=== PATIENT | male | born 1985 | race Caucasian/White ===

== ENCOUNTER 2022-04-03 23:26 | Inpatient (IN) | payer MEDICAID, OTHER ==
--- NOTE | 2022-04-04 01:00 | ED ---
Psych HPI - General Chief Complaint: Psychiatric Symptoms Stated Complaint: Mental health Time Seen by Provider: 04/04/22 00:15 Source: patient Mode of arrival: ambulatory - History of Present Illness Initial Comments: 37-year-old male with past history of bipolar schizophrenia presents to the emergency department after he is petitioned by police. Patient reports that his boyfriend 2 years ago. There was some explosive photos that were just released to family and friends approximate one month ago. This is making him depressed. Apparently he sent a video to friends with an entire bottle of pills in his mouth. Patient reports to me that he had a lapse in his judgment. States that he did not swallow the pills. Reports that they were Celexa tablets. He denies suicidal ideations or homicidal ideations to me. His thoughts are extremely disorganized and nonsensical. The HPI is limited because of the patient's mental status - Related Data Home Medications Medication Instructions Recorded Confirmed PARoxetine [Paxil] 20 mg PO BID PRN 04/04/22 04/04/22 Allergies Allergy/AdvReac Type Severity Reaction Status Date / Time No Known Allergies Allergy Verified 04/04/22 07:14 Review of Systems ROS Statement: Those systems with pertinent positive or pertinent negative responses have been documented in the HPI. ROS Other: All systems not noted in ROS Statement are negative. Past Medical History Past Medical History: No Reported History History of Any Multi-Drug Resistant Organisms: None Reported Past Surgical History: No Surgical Hx Reported Past Psychological History: No Psychological Hx Reported Smoking Status: Never smoker Past Alcohol Use History: None Reported Past Drug Use History: None Reported - Past Family History Mother Family Medical History: COPD General Exam Limitations: altered mental status General appearance: alert, in no apparent distress Head exam: Present: atraumatic, normocephalic, normal inspection Eye exam: Present: normal appearance, PERRL, EOMI. Absent: scleral icterus, conjunctival injection, periorbital swelling ENT exam: Present: normal exam, mucous membranes moist Neck exam: Present: normal inspection. Absent: tenderness, meningismus, lymphadenopathy Respiratory exam: Present: normal lung sounds bilaterally. Absent: respiratory distress, wheezes, rales, rhonchi, stridor Cardiovascular Exam: Present: regular rate, normal rhythm, normal heart sounds. Absent: systolic murmur, diastolic murmur, rubs, gallop, clicks GI/Abdominal exam: Present: soft, normal bowel sounds. Absent: distended, tenderness, guarding, rebound, rigid Extremities exam: Present: normal inspection, full ROM, normal capillary refill. Absent: tenderness, pedal edema, joint swelling, calf tenderness Back exam: Present: normal inspection Neurological exam: Present: alert, oriented X3, CN II-XII intact Psychiatric exam: Present: manic Skin exam: Present: warm, dry, intact, normal color. Absent: rash Course Vital Signs 04/03/22 04/04/22 23:57 06:41 Temperature 97.1 F L Pulse Rate 70 83 Respiratory 20 18 Rate Blood Pressure 133/83 136/90 O2 Sat by Pulse 100 99 Oximetry Medical Decision Making - Medical Decision Making Upon arrival patient is placed into room 7. Thorough history and physical exam is performed. Patient is to patient. I did conduct laboratory studies due to possible overdose. UDS is positive for marijuana. Salicylates and acetaminoph en are negative. Patient is ready for EPS evaluation at this time - Lab Data Result diagrams: 04/04/22 01:14 04/04/22 01:14 Lab Results 04/04/22 04/04/22 04/04/22 Range/Units 01:14 01:14 01:14 WBC 9.7 (3.8-10.6) k/uL RBC 4.91 (4.30-5.90) m/uL Hgb 15.4 (13.0-17.5) gm/dL Hct 46.7 (39.0-53.0) % MCV 95.1 (80.0-100.0) fL MCH 31.4 (25.0-35.0) pg MCHC 33.0 (31.0-37.0) g/dL RDW 12.9 (11.5-15.5) % Plt Count 201 (150-450) k/uL MPV 10.4 Neutrophils % 66 % Lymphocytes % 26 % Monocytes % 5 % Eosinophils % 2 % Basophils % 1 % Neutrophils # 6.4 (1.3-7.7) k/uL Lymphocytes # 2.5 (1.0-4.8) k/uL Monocytes # 0.5 (0-1.0) k/uL Eosinophils # 0.2 (0-0.7) k/uL Basophils # 0.1 (0-0.2) k/uL Sodium 138 (137-145) mmol/L Potassium 3.8 (3.5-5.1) mmol/L Chloride 106 (98-107) mmol/L Carbon Dioxide 20 L (22-30) mmol/L Anion Gap 12 mmol/L BUN 12 (9-20) mg/dL Creatinine 0.70 (0.66-1.25) mg/dL Est GFR (CKD-EPI)AfAm >90 (>60 ml/min/1.73 sqM) Est GFR (CKD-EPI)NonAf >90 (>60 ml/min/1.73 sqM) Glucose 89 (74-99) mg/dL Calcium 9.7 (8.4-10.2) mg/dL Total Bilirubin 0.5 (0.2-1.3) mg/dL AST 24 (17-59) U/L ALT 15 (4-49) U/L Alkaline Phosphatase 71 (38-126) U/L Total Protein 7.3 (6.3-8.2) g/dL Albumin 4.7 (3.5-5.0) g/dL Urine Color Yellow Urine Appearance Clear (Clear) Urine pH 6.0 (5.0-8.0) Ur Specific [place] 1.017 (1.001-1.035) Urine Protein Trace H (Negative) Urine Glucose (UA) Negative (Negative) Urine Ketones 1+ H (Negative) Urine Blood Negative (Negative) Urine Nitrite Negative (Negative) Urine Bilirubin Negative (Negative) Urine Urobilinogen <2.0 (<2.0) mg/dL Ur Leukocyte Esterase Negative (Negative) Salicylates <1.0 mg/dL Urine Opiates Screen Not Detected (NotDetected) Ur Oxycodone Screen Not Detected (NotDetected) Urine Methadone Screen Not Detected (NotDetected) Ur Propoxyphene Screen Not Detected (NotDetected) Acetaminophen <10.0 ug/mL Ur Barbiturates Screen Not Detected (NotDetected) U Tricyclic Antidepress Not Detected (NotDetected) Ur Phencyclidine Scrn Not Detected (NotDetected) Ur Amphetamines Screen Not Detected (NotDetected) U Methamphetamines Scrn Not Detected (NotDetected) U Benzodiazepines Scrn Not Detected (NotDetected) Urine Cocaine Screen Not Detected (NotDetected) U Marijuana (THC) Screen Detected H (NotDetected) Coronavirus (PCR) (Not Detectd) 04/04/22 Range/Units 05:03 WBC (3.8-10.6) k/uL RBC (4.30-5.90) m/uL Hgb (13.0-17.5) gm/dL Hct (39.0-53.0) % MCV (80.0-100.0) fL MCH (25.0-35.0) pg MCHC (31.0-37.0) g/dL RDW (11.5-15.5) % Plt Count (150-450) k/uL MPV Neutrophils % % Lymphocytes % % Monocytes % % Eosinophils % % Basophils % % Neutrophils # (1.3-7.7) k/uL Lymphocytes # (1.0-4.8) k/uL Monocytes # (0-1.0) k/uL Eosinophils # (0-0.7) k/uL Basophils # (0-0.2) k/uL Sodium (137-145) mmol/L Potassium (3.5-5.1) mmol/L Chloride (98-107) mmol/L Carbon Dioxide (22-30) mmol/L Anion Gap mmol/L BUN (9-20) mg/dL Creatinine (0.66-1.25) mg/dL Est GFR (CKD-EPI)AfAm (>60 ml/min/1.73 sqM) Est GFR (CKD-EPI)NonAf (>60 ml/min/1.73 sqM) Glucose (74-99) mg/dL Calcium (8.4-10.2) mg/dL Total Bilirubin (0.2-1.3) mg/dL AST (17-59) U/L ALT (4-49) U/L Alkaline Phosphatase (38-126) U/L Total Protein (6.3-8.2) g/dL Albumin (3.5-5.0) g/dL Urine Color Urine Appearance (Clear) Urine pH (5.0-8.0) Ur Specific [place] (1.001-1.035) Urine Protein (Negative) Urine Glucose (UA) (Negative) Urine Ketones (Negative) Urine Blood (Negative) Urine Nitrite (Negative) Urine Bilirubin (Negative) Urine Urobilinogen (<2.0) mg/dL Ur Leukocyte Esterase (Negative) Salicylates mg/dL Urine Opiates Screen (NotDetected) Ur Oxycodone Screen (NotDetected) Urine Methadone Screen (NotDetected) Ur Propoxyphene Screen (NotDetected) Acetaminophen ug/mL Ur Barbiturates Screen (NotDetected) U Tricyclic Antidepress (NotDetected) Ur Phencyclidine Scrn (NotDetected) Ur Amphetamines Screen (NotDetected) U Methamphetamines Scrn (NotDetected) U Benzodiazepines Scrn (NotDetected) Urine Cocaine Screen (NotDetected) U Marijuana (THC) Screen (NotDetected) Coronavirus (PCR) Not Detected (Not Detectd) - EKG Data EKG Comments: EKG hematocrit sinus rhythm with a rate of 81. CT interval 160. QRS 86. QTC of 380. ST segment elevation 2, 3, aVF, V2-V6. No reciprocal changes. Signs of early repolarization Disposition Clinical Impression: Acute psychosis Disposition: TRANSFER TO PSYCH HOSP/UNIT Condition: Stable Is patient prescribed a controlled substance at d/c from ED?: No Decision to Admit Reason: Admit from EC
[2022-04-04 01:20] LABS: Basophils # (A) 0.1 k/uL (0-0.2); Basophils % (A) 1 %; Eosinophils # (A) 0.2 k/uL (0-0.7); Eosinophils % (A) 2 %; HCT 46.7 % (39.0-53.0); HGB 15.4 gm/dL (13.0-17.5); Lymphocytes # (A) 2.5 k/uL (1.0-4.8); Lymphocytes % (A) 26 %; MCH 31.4 pg (25.0-35.0); MCV 95.1 fL (80.0-100.0); Mean Platelet Volume 10.4; Monocytes # (A) 0.5 k/uL (0-1.0); Monocytes % (A) 5 %; Neutrophils # (A) 6.4 k/uL (1.3-7.7); Neutrophils % (A) 66 %; Platelet Count 201 k/uL (150-450); RBC 4.91 m/uL (4.30-5.90); RDW 12.9 % (11.5-15.5); WBC 9.7 k/uL (3.8-10.6)
[2022-04-04 01:24] LABS: Appearance,Urine Clear (Clear); Bilirubin,Urine Negative (Negative); Blood,Urine Negative (Negative); Color,Urine Yellow; Glucose,Urine (UA) Negative (Negative); Ketones,Urine 1+ (Negative); Leukocyte Esterase,Urine Negative (Negative); Nitrite,Urine Negative (Negative); Protein,Urine Trace (Negative); Specific Gravity,Urine 1.017 (1.001-1.035); Urobilinogen,Urine <2.0 mg/dL (<2.0)
[2022-04-04 01:35] LABS: ALT 15 U/L (4-49); AST 24 U/L (17-59); Acetaminophen <10.0 ug/mL; African American GFR (CKD) >90 (>60 ml/min/1.73 sqM); Albumin 4.7 g/dL (3.5-5.0); Alkaline Phosphatase 71 U/L (38-126); Anion Gap 12 mmol/L; Blood Urea Nitrogen 12 mg/dL (9-20); Calcium 9.7 mg/dL (8.4-10.2); Carbon Dioxide 20 mmol/L (22-30); Chloride 106 mmol/L (98-107); Glucose 89 mg/dL (74-99); Non-African American GFR(CKD) >90 (>60 ml/min/1.73 sqM); Potassium 3.8 mmol/L (3.5-5.1); Salicylate <1.0 mg/dL; Sodium 138 mmol/L (137-145); Total Bilirubin 0.5 mg/dL (0.2-1.3); Total Protein 7.3 g/dL (6.3-8.2)
[2022-04-04 01:47] LABS: Amphetamine Screen,Urine Not Detected (NotDetected); Barbiturate Screen,Urine Not Detected (NotDetected); Benzodiazepines Screen,Urine Not Detected (NotDetected); Cocaine Screen,Urine Not Detected (NotDetected); Methadone Screen, Urine Not Detected (NotDetected); Opiate Screen,Urine Not Detected (NotDetected); Oxycodone Screen, Urine Not Detected (NotDetected); Phencyclidine Screen,Urine Not Detected (NotDetected); Tricyclic Antidepressant,Urine Not Detected (NotDetected); Urn Cannabinoid Scrn Detected (NotDetected)
[2022-04-04] MEDS ORDERED: MAGNESIUM HYDROXIDE 2,400 MG/10 ML CUP PO PRN (06:39)
[2022-04-04] MEDS ORDERED: ACETAMINOPHEN TAB 325 MG TAB PO PRN (06:39)
[2022-04-04] MEDS ORDERED: MAG HYDROX/AL HYDROX/SIMETH 30 ML CUP PO PRN (06:39)
[2022-04-04] MEDS ORDERED: HALOPERIDOL LACTATE 5 MG/ML 1 ML VIAL IM PRN (06:39)
[2022-04-04] MEDS ORDERED: LORazepam 2 MG/ML INJ IM PRN (07:12)
[2022-04-04] MEDS ORDERED: haloperidoL 5 MG TAB PO PRN (07:13)
[2022-04-04] MEDS: NICOTINE 14MG/24HR PATCH TRANSDERM SCH (09:24)
[2022-04-04] MEDS: LORazepam 1 MG TAB PO PRN ×2 (09:50→20:36)
[2022-04-04] MEDS ORDERED: ARIPiprazole 10 MG TAB PO STA (12:00)
--- NOTE | 2022-04-04 14:50 | P.HP ---
Psychiatric H&P - . H&P Date: 04/04/22 History & Physical: Allergies Allergy/AdvReac Type Severity Reaction Status Date / Time No Known Allergies Allergy Verified 04/04/22 07:14 Vital Signs Temp 97.7 F 04/04/22 08:40 Pulse 107 H 04/04/22 08:40 Resp 16 04/04/22 08:40 BP 131/77 04/04/22 08:40 Pulse Ox 97 04/04/22 08:40 FiO2 Intake & Output 04/03/22 04/04/22 04/04/22 18:59 06:59 18:59 Weight 81.647 kg Laboratory Last Values WBC 9.7 k/uL (3.8-10.6) 04/04/22 01:14 RBC 4.91 m/uL (4.30-5.90) 04/04/22 01:14 Hgb 15.4 gm/dL (13.0-17.5) 04/04/22 01:14 Hct 46.7 % (39.0-53.0) 04/04/22 01:14 MCV 95.1 fL (80.0-100.0) 04/04/22 01:14 MCH 31.4 pg (25.0-35.0) 04/04/22 01:14 MCHC 33.0 g/dL (31.0-37.0) 04/04/22 01:14 RDW 12.9 % (11.5-15.5) 04/04/22 01:14 Plt Count 201 k/uL (150-450) 04/04/22 01:14 MPV 10.4 04/04/22 01:14 Neutrophils % 66 % 04/04/22 01:14 Lymphocytes % 26 % 04/04/22 01:14 Monocytes % 5 % 04/04/22 01:14 Eosinophils % 2 % 04/04/22 01:14 Basophils % 1 % 04/04/22 01:14 Neutrophils # 6.4 k/uL (1.3-7.7) 04/04/22 01:14 Lymphocytes # 2.5 k/uL (1.0-4.8) 04/04/22 01:14 Monocytes # 0.5 k/uL (0-1.0) 04/04/22 01:14 Eosinophils # 0.2 k/uL (0-0.7) 04/04/22 01:14 Basophils # 0.1 k/uL (0-0.2) 04/04/22 01:14 Sodium 138 mmol/L (137-145) 04/04/22 01:14 Potassium 3.8 mmol/L (3.5-5.1) 04/04/22 01:14 Chloride 106 mmol/L (98-107) 04/04/22 01:14 Carbon Dioxide 20 mmol/L (22-30) L 04/04/22 01:14 Anion Gap 12 mmol/L 04/04/22 01:14 BUN 12 mg/dL (9-20) 04/04/22 01:14 Creatinine 0.70 mg/dL (0.66-1.25) 04/04/22 01:14 Est GFR (CKD-EPI)AfAm >90 (>60 ml/min/1.73 sqM) 04/04/22 01:14 Est GFR (CKD-EPI)NonAf >90 (>60 ml/min/1.73 sqM) 04/04/22 01:14 Glucose 89 mg/dL (74-99) 04/04/22 01:14 Calcium 9.7 mg/dL (8.4-10.2) 04/04/22 01:14 Total Bilirubin 0.5 mg/dL (0.2-1.3) 04/04/22 01:14 AST 24 U/L (17-59) 04/04/22 01:14 ALT 15 U/L (4-49) 04/04/22 01:14 Alkaline Phosphatase 71 U/L (38-126) 04/04/22 01:14 Total Protein 7.3 g/dL (6.3-8.2) 04/04/22 01:14 Albumin 4.7 g/dL (3.5-5.0) 04/04/22 01:14 Urine Color Yellow 04/04/22 01:14 Urine Appearance Clear (Clear) 04/04/22 01:14 Urine pH 6.0 (5.0-8.0) 04/04/22 01:14 Ur Specific [place] 1.017 (1.001-1.035) 04/04/22 01:14 Urine Protein Trace (Negative) H 04/04/22 01:14 Urine Glucose (UA) Negative (Negative) 04/04/22 01:14 Urine Ketones 1+ (Negative) H 04/04/22 01:14 Urine Blood Negative (Negative) 04/04/22 01:14 Urine Nitrite Negative (Negative) 04/04/22 01:14 Urine Bilirubin Negative (Negative) 04/04/22 01:14 Urine Urobilinogen <2.0 mg/dL (<2.0) 04/04/22 01:14 Ur Leukocyte Esterase Negative (Negative) 04/04/22 01:14 Salicylates <1.0 mg/dL 04/04/22 01:14 Urine Opiates Screen Not Detected (NotDetected) 04/04/22 01:14 Ur Oxycodone Screen Not Detected (NotDetected) 04/04/22 01:14 Urine Methadone Screen Not Detected (NotDetected) 04/04/22 01:14 Ur Propoxyphene Screen Not Detected (NotDetected) 04/04/22 01:14 Acetaminophen <10.0 ug/mL 04/04/22 01:14 Ur Barbiturates Screen Not Detected (NotDetected) 04/04/22 01:14 U Tricyclic Antidepress Not Detected (NotDetected) 04/04/22 01:14 Ur Phencyclidine Scrn Not Detected (NotDetected) 04/04/22 01:14 Ur Amphetamines Screen Not Detected (NotDetected) 04/04/22 01:14 U Methamphetamines Scrn Not Detected (NotDetected) 04/04/22 01:14 U Benzodiazepines Scrn Not Detected (NotDetected) 04/04/22 01:14 Urine Cocaine Screen Not Detected (NotDetected) 04/04/22 01:14 U Marijuana (THC) Screen Detected (NotDetected) H 04/04/22 01:14 Coronavirus (PCR) Not Detected (Not Detectd) 04/04/22 05:03 04/04/22 14:50 IDENTIFYING DATA: Patient is a 37-year-old, , self-employed, male with a significant history of psychosis presents to the hospital under petition and certification for acute psychotic behavior and depression. HPI: Patient presented to the hospital on 04/04/2022, brought in by police after being petition by the [employer] police. "Patient advised he does not like taking his medication for anxiety because he can no longer do the voice in his head. I observed text messages from the patient's aunt to family members and friends saying that he does not want to be alive. I observed a video the patient sent to her friend swallowing approximately 25+ white pills." The patient is noted by the EPS as to present as tangential, with rambling thought process, and talking about the relationship he had with a partner 2 years ago. He was admitted for further evaluation and management. Upon admission onto the psychiatric unit, the patient reports that recently, he has been expressing numerous stressors. He states that he had an ex parte her who 2 years ago for "being rios." He reports that recently, photos of their relationship have been released on Facebook causing many of his friends and family to charge hand him. Furthermore, he states that his 17-year-old daughter was recently held up at [employer]. 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 In regards to psychiatric symptoms, the patient is not reporting any suicidal or homicidal ideation, intention, and/or plan. He reports that he had suicidal thoughts shortly after taking Paxil because he felt that the Paxil "took away my soul." He states that he felt like he was disconnected from God and felt very depressed and wanting to kill himself. During the interview, the patient is quite tangential and presented with a flight of ideas that are difficult to follow. He is not reporting any auditory or visual hallucinations however does report some grandiose delusions. He is in agreement to start medications in order to address his elevated anxiety and racing thoughts. PAST PSYCHIATRIC HISTORY: Patient states that he has been increasingly diagnosed with anxiety. Patient is able to recall being previous to prescribed Abilify and Paxil. The patient reports a previous psychiatric admission at [facility]. Patient denies any psychiatric outpatient follow-up. He admits to the previous overdose attempt prior to this admission. PMH: Past Medical History: No Reported History History of Any Multi-Drug Resistant Organisms: None Reported Past Surgical History: No Surgical Hx Reported Past Psychological History: No Psychological Hx Reported Smoking Status: Never smoker Past Alcohol Use History: None Reported Past Drug Use History: None Reported ALLERGIES: NO KNOWN DRUG ALLERGIES CHEMICAL DEPENDENCY HISTORY: Patient admits to marijuana use on occasion. He denies any alcohol or illicit drug use. He denies any tobacco use. PSYCHIATRIC/SUBSTANCE USE HISTORY: No reported family psychiatric history. SOCIAL HISTORY: Patient currently lives with his ex-, their 2 children, and 2 other adult males in the home. MENTAL STATUS EXAM: General Appearance: Patient appears to be stated age is alert, directable, and attempts to cooperate. Patient appears to have fair hygiene and grooming. Tall and thin. Behavior: Patient is seated without any agitated behavior. Eye contact is i ntense. Speech: Patient's speech is tangential, hyperverbal, and slightly pressured. Mood/Affect: Patient reports their mood is "nervous," affect is incongruent and very expensive. Suicidality/Homicidality: Patient is currently denying any suicidal or homicidal ideation. Perceptions: Patient denies any visual hallucinations and denies any auditory hallucinations Though content/process: The patient endorses some grandiose delusional thoughts as well as possible delusions of persecution. Memory and concentration: AOX3, grossly intact for the purposes of this session. Can spell "WORLD" backwards Judgment and insight: Poor STRENGTHS/WEAKNESSES: Strength is that the patient is resilient and has a supportive family. Weakness is that patient has poor insight INTELLECT: average IMPRESSIONS: Acute psychosis Rule out delusional disorder Cannabis use disorder PLAN: -Patient is admitted under involuntary however converted to voluntary status to MHU for stabilization of psychiatric symptoms and safety. Patient signed adult voluntary form and medication consent and is placed in patient's chart. -Medications : Will start patient on Abilify 10 mg by mouth daily for mood stabilization/psychosis -Ativan and Haldol PRN for agitation/aggression -Patient was counselled on substance abuse and desired to cut back on use -Patient was informed of the risks, benefits and side effects of the medication and patient verbally consented to taking the medications. Patient signed med consent form and was placed in chart. -Internal Medicine consult to perform medical evaluation and physical. -SW on board for discharge planning. Encourage patient to participate in groups to work on coping skills. 04/04/22 14:50
--- NOTE | 2022-04-05 04:30 | P.CONS ---
History of Present Illness - Reason for Consult Consult date: 04/04/22 - History of Present Illness The patient is a 37-year-old male with a PMH of schizophrenia and bipolar disorder who was brought into the emergency room under police custody due to aggressive behavior. The patient had reportedly been making suicidal threats to his family members and friends. He was admitted to mental health unit where he was seen and evaluated. The patient reports that his boyfriend had 3 years ago and that there is a conspiracy surrounding his . He did not wish to elaborate further. He does report using marijuana and smoking half pack of cigarettes daily but denied alcohol use. Denies physical complaints at the time of interview. Denied chest pain, shortness of breath, chills, cough. Review of systems: Pertinent positives and negatives as discussed in HPI, a complete review of systems was performed and all other systems are negative. Physical examination: General: non toxic, no distress, appears at stated age, normal weight Derm: no unusual rashes/lesions, no unusual ecchymoses, warm, dry Head: atraumatic, normocephalic, symmetric Eyes: EOMI, no lid lag, anicteric sclera ENT: Nose and ears atraumatic, no thrush, no pharyngeal erythema Neck: trachea midline, supple Mouth: no lip lesion, mucus membranes moist Cardiovascular: S1S2 reg, no murmur, no edema Lungs: CTA bilateral, no rhonchi, no rales , no accessory muscle use Abdominal: soft, nontender to palpation, no guarding Ext: no gross muscle atrophy, no contractures, Neuro: No gross focal neuro deficits noted Psych: Alert, oriented, appropriate affect Assessment/plan Marijuana abuse and tobacco abuse -Advised on importance of cessation Depression with suicidal ideation -As per psychiatry Thank you for allowing us to participate in the care of this patient. We will follow peripherally. Do not hesitate to contact us with questions. Someone can be reached from the [facility] hospitalist group at all hours of the day at [phone]. Past Medical History Past Medical History: No Reported History History of Any Multi-Drug Resistant Organisms: None Reported Past Surgical History: No Surgical Hx Reported Smoking Status: Current every day smoker - Past Family History Mother Family Medical History: COPD Medications and Allergies Home Medications Medication Instructions Recorded Confirmed Type PARoxetine [Paxil] 20 mg PO BID PRN 04/04/22 04/04/22 History Allergies Allergy/AdvReac Type Severity Reaction Status Date / Time No Known Allergies Allergy Verified 04/04/22 07:14 Physical Exam Vitals: Vital Signs Temp Pulse Pulse Resp BP BP Pulse Ox 04/04/22 08:40 97.7 F 107 H 16 131/77 97 04/04/22 06:41 83 18 136/90 99 04/03/22 23:57 97.1 F L 70 20 133/83 100 Intake and Output 04/04/22 04/04/22 04/04/22 06:59 14:59 22:59 Other: Weight 81.647 kg Results CBC & Chem 7: 04/04/22 01:14 04/04/22 01:14 Labs: Abnormal Lab Results - Last 24 Hours (Table) 04/04/22 04/04/22 Range/Units 01:14 01:14 Carbon Dioxide 20 L (22-30) mmol/L Urine Protein Trace H (Negative) Urine Ketones 1+ H (Negative) U Marijuana (THC) Screen Detected H (NotDetected)
[2022-04-05] MEDS: NICOTINE 14MG/24HR PATCH TRANSDERM SCH (08:10)
[2022-04-05] MEDS ORDERED: ARIPiprazole 15 MG TAB PO SCH (09:00)
[2022-04-05 09:25] LABS: Chol/HDL Ratio 3.75 Ratio; LDL Cholesterol,Calculated 107.3 mg/dL (0.0-131.0)
[2022-04-05 12:11] LABS: Albumin 4.8 g/dL (3.8-4.9); Bilirubin, Conjugated <0.20 mg/dL (0.20-0.40); Total Protein 7.2 g/dL (6.2-8.2)
[2022-04-05 12:16] LABS: ALT 15 U/L (10-49); AST 23 U/L (14-35); Alkaline Phosphatase 71 U/L (41-126)
[2022-04-05] MEDS: LORazepam 1 MG TAB PO PRN (20:53)
[2022-04-06 06:52] VITALS: BP 122/60; PULSE 66; RESP 17; TEMP 98.6
[2022-04-06] MEDS: NICOTINE 14MG/24HR PATCH TRANSDERM SCH (08:01)
[2022-04-06] MEDS ORDERED: IBUPROFEN 600 MG TAB PO PRN (09:34)
--- NOTE | 2022-04-06 12:42 | P.PN ---
Progress Note - Text Progress Note Date: 04/05/22 Interval History: Patient was seen wandering the hallways and was directable and agreeable to speak with policy writer in the office. Currently, the patient is reporting that he is feeling significantly better and that his head is more clear. He reports that the Abilify has been helping him with this. He is currently denying any suicidal or homicidal ideation, intention, and/or plan. He is not reporting any auditory or visual hallucinations. He denies any paranoia or other delusions. He reports that he is eating and sleeping better. He is agreeable to further titration of his Abilify. Mental Status Exam: General Appearance: Patient appears to be stated age is alert, directable, and cooperative. Tall and thin build. Tattoo on his left knuckles spelling out his last name. Behavior: Patient is calmly seated without any agitated behavior. Speech: Patient's speech is fluent and nonpressured. Mood/Affect: Mood is improving mildly, affect is congruent and constricted. Suicidality/Homicidality: Patient denies having any suicidal or homicidal ideation intent or plan. Perceptions: Patient denies any visual hallucinations and denies any auditory hallucinations Though content/process: There is no evidence of any delusional thought content and thought process is linear and goal-directed. Memory and concentration: AOX3, grossly intact for the purposes of this session Judgment and insight: Improving mildly Assessment Acute psychosis Rule out delusional disorder Cannabis use disorder Plan: -Patient continues to meet criteria for inpatient psychiatric admission for symptom stabilization and safety. Patient has signed adult voluntary form and medication consent and was placed in patient's chart. -Medications: Abilify 15 mg by mouth daily for mood stabilization/psychosis -When necessary Ativan and Haldol for agitation/aggression. -NRT - nicotine patch -SW on board for discharge planning. Encouraged the patient to participate in milieu.
--- NOTE | 2022-04-06 12:47 | P.DS ---
Providers Date of admission: 04/04/22 06:25 Expected date of discharge: 04/06/22 Attending physician: Efra Baker MD Consults: 04/04/22 06:39 Consult Physician Routine Consulting Provider: Chepe Sutbbs Consult Reason/Comments: For H & P for Medical Follow Up Do you want consulting provider notified?: Yes Primary care physician: MERON ALLEN MD - Discharge Diagnosis(es) (1) Acute psychosis Status: Acute Priority: High (2) Cannabis abuse Status: Chronic Priority: Medium (3) Tobacco use disorder Status: Chronic Priority: Medium Hospital Course: Admission HPI: Patient is a 37-year-old, , self-employed, male with a significant history of psychosis presents to the hospital under petition and certification for acute psychotic behavior and depression. Patient presented to the hospital on 04/04/2022, brought in by police after being petition by the [employer] police. "Patient advised he does not like taking his medication for anxiety because he can no longer do the voice in his head. I observed text messages from the patient's aunt to family members and friends saying that he does not want to be alive. I observed a video the patient sent to her friend swallowing approximately 25+ white pills." The patient is noted by the EPS as to present as tangential, with rambling thought process, and ta lking about the relationship he had with a partner 2 years ago. He was admitted for further evaluation and management. Upon admission onto the psychiatric unit, the patient reports that recently, he has been expressing numerous stressors. He states that he had an ex parte her who 2 years ago for "being rios." He reports that recently, photos of their relationship have been released on Facebook causing many of his friends and family to criminal judge him. Furthermore, he states that his 17-year-old daughter was recently held up at [employer]. He also states that he is experiencing significant financial stressors in regards to his business with [employer]. In regards to psychiatric symptoms, the patient is not reporting any suicidal or homicidal ideation, intention, and/or plan. He reports that he had suicidal thoughts shortly after taking Paxil because he felt that the Paxil "took away my soul." He states that he felt like he was disconnected from God and felt very depressed and wanting to kill himself. During the interview, the patient is quite tangential and presented with a flight of ideas that are difficult to follow. He is not reporting any auditory or visual hallucinations however does report some grandiose delusions. He is in agreement to start medications in order to address his elevated anxiety and racing thoughts. Patient states that he has been increasingly diagnosed with anxiety. Patient is able to recall being previous to prescribed Abilify and Paxil. The patient reports a previous psychiatric admission at [facility]. Patient denies any psychiatric outpatient follow-up. He admits to the previous overdose attempt prior to this admission. Hospital course: Upon admission to the unit patient was initially presenting as expansive, responding to internal stimuli, and exhibiting delusional thoughts. Patient was however directable and agreeable to commence treatment. Patient got along well with other patients on the unit and followed unit protocol. Patient was compliant with the medications and denied any side effects throughout hospital course. Patient was started on Abilify for management of acute psychosis. Patient spoke of his stressors and engaged in therapy both group and individual. Patient was also seen by medical team for history and physical exam. The patient displayed significant improvement in regards to his acute psychotic sym ptoms with a Abilify. He was gradually titrated to a final dose 20 mg daily. He tolerated the medication well. On the day of discharge, the patient is not reporting any suicidal or homicidal ideation, intention, and/or plan. He is not reporting any auditory or visual hallucinations. He denies any paranoia or other delusions. The patient has been adherent with his medications and is not reporting any significant side effects. The patient does have a history of marijuana abuse and was constantly great length and all substances including alcohol and marijuana. We discussed the marijuana may be contributing factor to his acute psychotic symptoms. 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 Prior to discharge, family meeting was arranged by social service manager to answer any questions and ensure safety. Mental status exam: General Appearance: Patient appears to be stated age is alert, pleasant, and co operative. Patient is in no acute distress and has fair hygiene and grooming. Tall and thin build. Behavior: Patient is calmly seated without any agitated behavior. Speech: Patient's speech is fluent and nonpressured. Mood/Affect: Patient reports their mood is "much better", affect is congruent and euthymic. Suicidality/Homicidality: Patient denies having any suicidal or homicidal ideation intent or plan. Perceptions: Patient denies any auditory or visual hallucinations. Though content/process: There is no evidence of any delusional thought content and thought process is linear and goal-directed. Patient is future and goal oriented. Memory and concentration: AOX3, grossly intact for the purposes of this session. Can spell "WORLD" backwards correctly. Judgment and insight: Improved with guarded prognosis Impression: Acute psychosis Cannabis use disorder Tobacco use disorder Plan: -Continue with discharge today as patient has improved and stabilized psychiatrically and is not currently an imminent threat to himself and/or others. Patient is at elevated risk if he continues to engage in heavy marijuana use. -Continue medications: Abilify 20 mg by mouth daily for mood stabilization/psychosis. Habitrol patches for nicotine cessation. -Patient was counseled on the need for medication compliance and appropriate follow-up at mental health and also primary care for medical issues. Patient verbalized understanding and agreed. -Social work to arrange for and conduct family meeting to ensure safety upon discharge and answer any questions/concerns. Social work also to arrange for patients follow up appointments with [facility] for psychiatric care along with follow up with primary care provider. -Patient counseled on abstaining from recreational drugs and marijuana and alcohol. Was informed/educated on the adverse effects on their physical and mental health. Patient verbally agreed and understood. -Patient was instructed to return to the hospital or seek immediate medical care if their psychiatric or medical symptoms do worsen or reoccur. -Psychoeducation and supportive therapy provided to patient. Risks and benefits of pharmacological treatment versus the risks and benefits of nontreatment weight and discussed. Informed consent discussion held. Common side effects of psychotropics discussed such as, but not limited to headache, GI disturbance, sexual dysfunction, movement disorders, sedation, and orthostatic hypotension. Life threatening and blackbox warnings of prescribed medications also discussed. Potential risks of operating a vehicle or heavy machinery discussed with patient at length. Advised on importance of compliance and a reliable and responsible manner. Patient advised to review FDA consumer labeling of all medications prior to taking. Patient verbalized understanding of potential risks, and agrees with current treatment plan. Patient advised to medically contact physician/emergency personnel if any acute changes in condition occur. Vital Signs Temp 98.6 F 04/06/22 05:45 Pulse 66 04/06/22 05:45 Resp 17 04/06/22 05:45 BP 122/60 04/06/22 05:45 Pulse Ox 100 04/06/22 05:45 FiO2 Laboratory Results WBC 9.7 k/uL (3.8-10.6) 04/04/22 01:14 RBC 4.91 m/uL (4.30-5.90) 04/04/22 01:14 Hgb 15.4 gm/dL (13.0-17.5) 04/04/22 01:14 Hct 46.7 % (39.0-53.0) 04/04/22 01:14 MCV 95.1 fL (80.0-100.0) 04/04/22 01:14 MCH 31.4 pg (25.0-35.0) 04/04/22 01:14 MCHC 33.0 g/dL (31.0-37.0) 04/04/22 01:14 RDW 12.9 % (11.5-15.5) 04/04/22 01:14 Plt Count 201 k/uL (150-450) 04/04/22 01:14 MPV 10.4 04/04/22 01:14 Neutrophils % 66 % 04/04/22 01:14 Lymphocytes % 26 % 04/04/22 01:14 Monocytes % 5 % 04/04/22 01:14 Eosinophils % 2 % 04/04/22 01:14 Basophils % 1 % 04/04/22 01:14 Neutrophils # 6.4 k/uL (1.3-7.7) 04/04/22 01:14 Lymphocytes # 2.5 k/uL (1.0-4.8) 04/04/22 01:14 Monocytes # 0.5 k/uL (0-1.0) 04/04/22 01:14 Eosinophils # 0.2 k/uL (0-0.7) 04/04/22 01:14 Basophils # 0.1 k/uL (0-0.2) 04/04/22 01:14 Sodium 138 mmol/L (137-145) 04/04/22 01:14 Potassium 3.8 mmol/L (3.5-5.1) 04/04/22 01:14 Chloride 106 mmol/L (98-107) 04/04/22 01:14 Carbon Dioxide 20 mmol/L (22-30) L 04/04/22 01:14 Anion Gap 12 mmol/L 04/04/22 01:14 BUN 12 mg/dL (9-20) 04/04/22 01:14 Creatinine 0.70 mg/dL (0.66-1.25) 04/04/22 01:14 Est GFR (CKD-EPI)AfAm >90 (>60 ml/min/1.73 sqM) 04/04/22 01:14 Est GFR (CKD-EPI)NonAf >90 (>60 ml/min/1.73 sqM) 04/04/22 01:14 Glucose 89 mg/dL (74-99) 04/04/22 01:[address] Glu mg/dL 118 04/05/22 01:14 Hemoglobin A1c 5.7 % (0.0-6.0) 04/05/22 01:14 Calcium 9.7 mg/dL (8.4-10.2) 04/04/22 01:14 Total Bilirubin 0.30 mg/dL (0.30-1.20) 04/05/22 01:14 Conjugated Bilirubin <0.20 mg/dL (0.20-0.40) L 04/05/22 01:14 Unconjugated Bilirubin [employer]EL[employer] 04/05/22 01:14 Delta Bilirubin Not Reportable 04/05/22 01:14 AST 23 U/L (14-35) 04/05/22 01:14 ALT 15 U/L (10-49) 04/05/22 01:14 Alkaline Phosphatase 71 U/L (41-126) 04/05/22 01:14 Total Protein 7.2 g/dL (6.2-8.2) 04/05/22 01:14 Albumin 4.8 g/dL (3.8-4.9) 04/05/22 01:14 Triglycerides 105.00 mg/dL (0.00-149.00) 04/05/22 01:14 Cholesterol 175.00 mg/dL (0.00-200.00) 04/05/22 01:14 LDL Cholesterol, Calc 107.3 mg/dL (0.0-131.0) 04/05/22 01:14 VLDL Cholesterol, Calc 21.00 mg/dL (5.00-40.00) 04/05/22 01:14 HDL Cholesterol 46.70 mg/dL (40.00-60.00) 04/05/22 01:14 Cholesterol/HDL Ratio 3.75 Ratio 04/05/22 01:14 TSH 1.610 uIU/mL (0.350-5.500) 04/05/22 01:14 Urine Color Yellow 04/04/22 01:14 Urine Appearance Clear (Clear) 04/04/22 01:14 Urine pH 6.0 (5.0-8.0) 04/04/22 01:14 Ur Specific [place] 1.017 (1.001-1.035) 04/04/22 01:14 Urine Protein Trace (Negative) H 04/04/22 01:14 Urine Glucose (UA) Negative (Negative) 04/04/22 01:14 Urine Ketones 1+ (Negative) H 04/04/22 01:14 Urine Blood Negative (Negative) 04/04/22 01:14 Urine Nitrite Negative (Negative) 04/04/22 01:14 Urine Bilirubin Negative (Negative) 04/04/22 01:14 Urine Urobilinogen <2.0 mg/dL (<2.0) 04/04/22 01:14 Ur Leukocyte Esterase Negative (Negative) 04/04/22 01:14 Salicylates <1.0 mg/dL 04/04/22 01:14 Urine Opiates Screen Not Detected (NotDetected) 04/04/22 01:14 Ur Oxycodone Screen Not Detected (NotDetected) 04/04/22 01:14 Urine Methadone Screen Not Detected (NotDetected) 04/04/22 01:14 Ur Propoxyphene Screen Not Detected (NotDetected) 04/04/22 01:14 Acetaminophen <10.0 ug/mL 04/04/22 01:14 Ur Barbiturates Screen Not Detected (NotDetected) 04/04/22 01:14 U Tricyclic Antidepress Not Detected (NotDetected) 04/04/22 01:14 Ur Phencyclidine Scrn Not Detected (NotDetected) 04/04/22 01:14 Ur Amphetamines Screen Not Detected (NotDetected) 04/04/22 01:14 U Methamphetamines Scrn Not Detected (NotDetected) 04/04/22 01:14 U Benzodiazepines Scrn Not Detected (NotDetected) 04/04/22 01:14 Urine Cocaine Screen Not Detected (NotDetected) 04/04/22 01:14 U Marijuana (THC) Screen Detected (NotDetected) H 04/04/22 01:14 Coronavirus (PCR) Not Detected (Not Detectd) 04/04/22 05:03 Allergies Allergy/AdvReac Type Severity Reaction Status Date / Time No Known Allergies Allergy Verified 04/04/22 07:14 Patient Condition at Discharge: Stable Plan - Discharge Summary New Discharge Prescriptions: New Nicotine 14Mg/24Hr Patch [Habitrol] 1 patch TRANSDERM DAILY 30 Days patch ARIPiprazole [Abilify] 20 mg PO DAILY 30 Days tab Discontinued PARoxetine [Paxil] 20 mg PO BID PRN PRN Reason: Agitation Or Acute Anxiety Discharge Medication List ARIPiprazole [Abilify] 20 mg PO DAILY 30 Days tab 04/06/22 [Rx] Nicotine 14Mg/24Hr Patch [Habitrol] 1 patch TRANSDERM DAILY 30 Days patch 04/06/22 [Rx] Follow up Appointment(s)/Referral(s): [facility] [place] [Outside] - 04/11/22 1:00 pm (with wire worker ) [facility] - 1-2 Days Patient Instructions/Handouts: Psychotic Disorder (DC) Activity/Diet/Wound Care/Special Instructions: Avoid the use of street drugs and alcohol. Take all prescriptions as prescribed. When you are in need of refills on your medications, please contact your medical provider and/or outpatient psychiatrist to have this done. Please go to scheduled outpatient appointment for aftercare treatment. If symptoms return or become worse, call the crisis line at and/or go to the nearest emergency room for evaluation. Discharge Disposition: HOME SELF-CARE
== END 2022-04-06 12:00 | disposition home or self-care (01) | DRG 885 ==
LOC: EC 23:26 → 3MHU 04-04 06:25
PROVIDERS: ADMIT Psychiatry & Neurology Psychiatry; ATTEND Psychiatry & Neurology Psychiatry
DX: F23 Brief psychotic disorder (principal); R45.851 Suicidal ideations; F17.210 Nicotine dependence, cigarettes, uncomplicated; Z63.4 Disappearance and death of family member; F41.9 Anxiety disorder, unspecified; Z20.822 Contact with and (suspected) exposure to COVID-19; Z71.51 Drug abuse counseling and surveillance of drug abuser; F12.10 Cannabis abuse, uncomplicated; F31.9 Bipolar disorder, unspecified; Z79.899 Other long term (current) drug therapy; Z82.5 Family history of asthma and other chronic lower respiratory diseases; R45.1 Restlessness and agitation
CPT/HCPCS: 36415; 80053; 80061; 80076; 80143; 80179; 80306; 81003; 82075; 83036; 84443; 85025; 87635; 93005; 99285